=== PATIENT | male | born 1950 | race Caucasian/White ===

== ENCOUNTER 2018-02-25 06:21 | Emergency (ER) | payer MEDICARE ==
[2018-02-25 06:57] LABS: BASOPHILS % (AUTO) 0.3 %; EOSINOPHILS # (AUTO) 0.1 10^3/uL (0.0-0.7); EOSINOPHILS % (AUTO) 0.5 %; HGB - HEMOGLOBIN 15.7 g/dL (14.0-18.0); LYMPHOCYTES # (AUTO) 0.9 10^3/uL (1.5-3.5); LYMPHOCYTES % (AUTO) 8.5 %; MEAN CORPUSCULAR HEMOGLOBIN 30.2 pg (27.0-31.0); MEAN CORPUSCULAR HGB CONC 34.6 g/dL (32.0-36.0); MEAN CORPUSCULAR VOLUME 87.4 fL (80.0-94.0); MONOCYTES # (AUTO) 0.4 10^3/uL (0.0-1.0); MONOCYTES % (AUTO) 3.9 %; NEUTROPHILS # (AUTO) 9.5 10^3/uL (1.5-6.6); NEUTROPHILS % (AUTO) 86.8 %; PLT - PLATELET COUNT 222 10^3/uL (130-450); RED BLOOD COUNT 5.19 10^6/uL (4.70-6.10); RED CELL DISTRIBUTION WIDTH 13.5 % (12.0-15.0); WHITE BLOOD COUNT 10.9 x10^3/uL (4.8-10.8)
--- NOTE | 2018-02-25 07:02 | ED Physician Documentation ---
PD HPI ABD PAIN - Stated complaint Stated Complaint: SIDE PX - Chief complaint Chief Complaint: Abd Pain - History obtained from History obtained from: Patient - History of Present Illness Timing - onset: Today (this morning about 1 hour ago) Timing - details: Abrupt onset, Now resolved, Intermittant (has had this happen 3 other times in the past month or so, each time abrupt onset while resting or light activity, severe and lasts about 20 minutes then has resolved. He did not notice if the area felt hard or such.) Quality: Aching, Sharp, Pain Location: RLQ Radiation: No: Chest, Lower back, Right flank Associated symptoms: Nausea, Vomiting. No: Fever, Diarrhea, Constipation, Dysuria, Hematuria, Loss of appetite Similar symptoms before: No diagnosis Recently seen: Not recently seen Review of Systems Constitutional: denies: Fever, Chills, Myalgias Nose: denies: Rhinorrhea / runny nose, Congestion Throat: denies: Sore throat Cardiac: denies: Chest pain / pressure, Palpitations Respiratory: denies: Dyspnea, Cough GI: reports: Abdominal Pain (these intermittent discrete episodes.). denies: Constipation, Diarrhea, Bloody / black stool : denies: Dysuria, Frequency, Hematuria, Discharge Skin: denies: Rash, Lesions Neurologic: denies: Generalized weakness, Focal weakness, Numbness, Near syncope PD PAST MEDICAL HISTORY - Past Medical History Past Medical History: No Cardiovascular: None Respiratory: None Neuro: None Endocrine/Autoimmune: None GI: None : None HEENT: None Psych: None Musculoskeletal: None Derm: None - Past Surgical History Past Surgical History: No - Present Medications Home Medications: Ambulatory Orders Medication Instructions Recorded Confirmed HYDROcod/ACETAM 5/325 [Vicodin 1 - 2 ea PO Q6H PRN #15 tablet 10/31/12 5/325] No Known Home Medications [No 10/31/12 10/31/12 Known Home Medications] - Allergies Allergies/Adverse Reactions: Allergies Allergy/AdvReac Type Severity Reaction Status Date / Time No Known Drug Allergies Allergy Verified 02/25/18 06:26 - Social History Does the pt smoke?: Yes Smoking Status: Current every day smoker Does the pt drink ETOH?: No Does the pt have substance abuse?: No - Immunizations Immunizations are current?: Yes - POLST Patient has POLST: No PD ED PE NORMAL - Vitals Vital signs reviewed: Yes - General General: Alert and oriented X 3, Well developed/nourished, Other (not in pain but seems anxious) - HEENT HEENT: Pharynx benign - Neck Neck: Supple, no meningeal sign, No adenopathy - Cardiac Cardiac: RRR, No murmur - Respiratory Respiratory: Clear bilaterally - Abdomen Abdomen: Normal bowel sounds, Soft, Non tender, Non distended, No organomegaly, Other (right inguinal hernia noted, soft and reducible at this time. Some tender in that area. No percussion nor rebound tenderness. ) - Male Male : Other (no scrotal tenderness. ) - Rectal Rectal: Deferred - Derm Derm: Normal color, Warm and dry, No rash - Extremities Extremities: No tenderness to palpate, Normal ROM s pain, No edema, No calf tenderness / cord - Neuro Neuro: Alert and oriented X 3, No motor deficit, Normal speech Results - Vitals Vitals: Oxygen O2 Source Room air - Labs Labs: Laboratory Tests 02/25/18 02/25/18 06:45 06:45 WBC 10.9 H RBC 5.19 Hgb 15.7 Hct 45.4 MCV 87.4 MCH 30.2 MCHC 34.6 RDW 13.5 Plt Count 222 MPV 8.0 Neut # (Auto) 9.5 H Lymph # (Auto) 0.9 L [place] # (Auto) 0.4 Eos # (Auto) 0.1 Baso # (Auto) 0.0 Absolute Nucleated RBC 0.00 Nucleated RBC % 0.0 Sodium 137 Potassium 4.0 Chloride 104 Carbon Dioxide 24 Anion Gap 9.0 BUN 20 Creatinine 1.5 H Estimated GFR (MDRD) 47 L Glucose 120 H Calcium 9.4 Total Bilirubin 1.1 H AST 23 ALT 18 Alkaline Phosphatase 67 Total Protein 7.4 Albumin 4.0 Globulin 3.4 Albumin/Globulin Ratio 1.2 Lipase 41 - Rads (name of study) KUB CT Radiology: Prelim report reviewed, EMP read contemporaneously (no obstruction, no kidney/gallbladder stones. Has inguinal hernia with loop of bowel in it. No signs of incarceration. ) PD MEDICAL DECISION MAKING - ED course Complexity details: reviewed results, considered differential (abrupt onset and then improvement of right lower abd pain, with hernia present. Presume intermittent incarceration. Got CT to ensure not kidney stones or such instead ( with incidental hernia). No stones and no signs of strangulation. He will want hernia repaired though, if he has had intermittent incarceration. ), d/w patient - Sepsis Event Vital Signs: Oxygen O2 Source Room air Departure - Departure Disposition: 01 Home, Self Care Clinical Impression: Abdominal pain Qualifiers: Abdominal location: right lower quadrant Qualified Code(s): R10.31 - Right lower quadrant pain Hernia, inguinal Qualifiers: Obstruction and gangrene presence: without obstruction or gangrene Laterality: unilateral Recurrence: non-recurrent Qualified Code(s): K40.90 - Unilateral inguinal hernia, without obstruction or gangrene, not specified as recurrent Condition: Stable Record reviewed to determine appropriate education?: Yes Instructions: Abdominal Pain, ED Hernia Inguinal Follow-Up: Galindo Champagne MD [Provider Admit Priv/Credential] - Comments: Your abdominal pain episodes appear to be coming from your hernia. It likely gets twisted and trapped episodically. It appears reducible right now it is not trapped currently. Your CT scan does not show any kidney stones or gallbladder problems or other causes for pain. You will want to have the hernia repaired to prevent it from happening again. Call the surgery office for follow-up appointment to discuss surgical repair of this. It is an outpatient surgery and rather easy repair and quick recovery. That would keep it from having any these pain episodes again. Return if further episodes that do not go away with lying flat and gentle pressure on the hernia area. Discharge Date/Time: 02/25/18 08:12
[2018-02-25 07:09] LABS: ALBUMIN/GLOBULIN RATIO 1.2 (1.0-2.2); BILIRUBIN,TOTAL 1.1 mg/dL (0.2-1.0); CALCIUM 9.4 mg/dL (8.5-10.3); CREATININE 1.5 mg/dL (0.6-1.2); TOTAL PROTEIN 7.4 g/dL (6.7-8.2)
--- NOTE | 2018-02-25 07:48 | CT Report ---
Reason: RLQ abrupt pain this morning Procedure Date: 02/25/2018 Accession Number: [id number] / [id number] Procedure: CT - KUB CPT Code: FULL RESULT: EXAM: CT ABDOMEN AND PELVIS (CT KUB) EXAM DATE: 02/25/2018 07:28 AM. CLINICAL HISTORY: Right lower quadrant abdominal pain with abrupt onset this morning. COMPARISONS: None. TECHNIQUE: Routine axial helical CT imaging was performed through the abdomen and pelvis without IV contrast. Reconstructions: Coronal and sagittal. In accordance with CT protocol optimization, one or more of the following dose reduction techniques were utilized for this exam: automated exposure control, adjustment of mA and/or KV based on patient size, or use of iterative reconstructive technique. FINDINGS: Lung Bases: There is a 5 mm calcified granuloma at the left lung base and calcified left hilar nodes, consistent with prior granulomatous disease. No consolidation of the visualized lung bases. Right Kidney/Ureter: No stones, hydronephrosis, or hydroureter. No perinephric fat stranding. Left Kidney/Ureter: No stones, hydronephrosis, or hydroureter. No perinephric fat stranding. Other Solid Organs: Noncontrast images of the solid organs are grossly unremarkable. Gallbladder/Bile Ducts: Unremarkable. Peritoneal Cavity: A moderate hiatal hernia is present. No free fluid, free air or ian adenopathy. Bowel is grossly unremarkable. The appendix is normal. Pelvic Organs: No bladder stones or wall thickening. Noncontrast images of the visualized pelvic organs are unremarkable. Vasculature: Unremarkable. Other: There is a moderate right inguinal hernia containing a short loop of small bowel. No evidence of bowel obstruction. There is a moderate fat-containing left inguinal hernia. There is right convex curvature of the lumbar spine, likely secondary to extensive degenerative disk and degenerative facet changes. No acute osseous abnormality. IMPRESSION: 1. No urinary tract stones or obstruction. 2. There is a moderate sized right inguinal hernia containing a short loop of small bowel. No evidence of small bowel obstruction. 3. There is a moderate-sized fat-containing left inguinal hernia. 4. Moderate hiatal hernia. 5. Normal appendix. RADIA
[2018-02-25 08:14] VITALS: BP 147/92
== END 2018-02-25 08:12 | disposition home or self-care (01) ==
LOC: EDBD 06:21 → ED 06:21
DX: R10.31 Right lower quadrant pain (principal); K40.90 Unilateral inguinal hernia, without obstruction or gangrene, not specified as recurrent; F17.200 Nicotine dependence, unspecified, uncomplicated
CPT/HCPCS: 36415; 74176; 80053; 83690; 85025; 99283

== ENCOUNTER 2019-07-16 15:16 | Emergency (ER) | payer MEDICARE ==
[2019-07-16 15:32] VITALS: BP 135/81
--- NOTE | 2019-07-16 16:02 | ED Physician Documentation ---
PD HPI HEENT - Stated complaint Stated Complaint: FACIAL SWELLING - Chief complaint Chief Complaint: Heent - History obtained from History obtained from: Patient - History of Present Illness Timing - onset: How many days ago (5) Timing - duration: Days (5) Timing - details: Gradual onset, Still present (worsening the past 1-2 days) Location: Tooth (left upper incisor) Worsens: Temperatures, Other (chewing) Associated symptoms: Facial swelling (left cheek and maxilla). No: Fever, Congestion Similar symptoms before: Has not had sx before Recently seen: Not recently seen (tried to make dental appt but no openings.) Review of Systems Constitutional: denies: Fever, Chills, Myalgias Throat: reports: Dental pain / toothache. denies: Sore throat Cardiac: denies: Chest pain / pressure, Palpitations Respiratory: denies: Dyspnea, Cough PD PAST MEDICAL HISTORY - Past Medical History Cardiovascular: None Respiratory: None Neuro: None Endocrine/Autoimmune: None GI: None : None HEENT: None Psych: None Musculoskeletal: None Derm: None - Past Surgical History Past Surgical History: No - Present Medications Home Medications: Ambulatory Orders Medication Instructions Recorded Confirmed HYDROcod/ACETAM 5/325 [Vicodin 1 - 2 ea PO Q6H PRN #15 tablet 10/31/12 5/325] Clindamycin HCl [Clindamycin 300MG 300 mg PO TID #21 capsule 07/16/19 CAP] Hydrocodone/Acetaminophen [[place] 1 each PO Q6H PRN #20 tablet 07/16/19 5-325 Tablet] Naproxen 500 mg PO BID #20 tablet 07/16/19 - Allergies Allergies/Adverse Reactions: Allergies Allergy/AdvReac Type Severity Reaction Status Date / Time No Known Drug Allergies Allergy Verified 07/16/19 15:32 - Social History Does the pt smoke?: Yes Smoking Status: Current every day smoker Does the pt drink ETOH?: No Does the pt have substance abuse?: No - Immunizations Immunizations are current?: Yes - POLST Patient has POLST: No PD ED PE NORMAL - Vitals Vital signs reviewed: Yes - General General: Alert and oriented X 3, Well developed/nourished, Other (appears in pain. Normal voice. ) - HEENT HEENT: Pharynx benign. No: Dentition benign (significant caries diffusely. Left upper incisor with decay and with gum swelling but no focal fluctuance. There is facial swelling without induration in left maxillary and cheek area. No abscess felt. ) - Neck Neck: Supple, no meningeal sign, No adenopathy - Cardiac Cardiac: RRR, No murmur - Respiratory Respiratory: Clear bilaterally Results - Vitals Vitals: Oxygen O2 Source Room air PD MEDICAL DECISION MAKING - ED course Complexity details: considered differential, d/w patient Departure - Departure Disposition: 01 Home, Self Care Clinical Impression: Infected dental caries Condition: Stable Record reviewed to determine appropriate education?: Yes Instructions: ED Dental Abscess Facial Cellulitis Prescriptions: Clindamycin HCl [Clindamycin 300MG CAP] 300 mg PO TID #21 capsule Hydrocodone/Acetaminophen [[place] 5-325 Tablet] 1 each PO Q6H PRN #20 tablet PRN Reason: Pain Naproxen 500 mg PO BID #20 tablet Comments: Stay well-hydrated. Anti-inflammatory such as naproxen 500 mg twice daily for 7 to 10 days with food. Add Tylenol or hydrocodone as needed for pain. Clindamycin antibiotic 3 times a day for a week. Follow-up with dental/dentist if not improved over the next several days and then at their soonest appointment for more definitive care of the teeth. The current emphasis on treatment is to reduce the infection and inflammation and pain. However the decayed teeth subsequently need more definitive dental care. Discharge Date/Time: 07/16/19 16:32
[2019-07-16] MEDS ORDERED: IBUPROFEN 600 MG TABLET PO STA (16:11)
[2019-07-16] MEDS ORDERED: CLINDAMYCIN 150 MG CAPSULE PO STA (16:11)
[2019-07-16] MEDS ORDERED: HYDROcod/ACETAM 5/325 MG TABLET PO STA (16:11)
== END 2019-07-16 16:32 | disposition home or self-care (01) ==
LOC: ED 15:16
DX: K04.7 Periapical abscess without sinus (principal); K02.9 Dental caries, unspecified; F17.200 Nicotine dependence, unspecified, uncomplicated
CPT/HCPCS: 99283; 99284; A9270

== ENCOUNTER 2020-11-26 08:23 | Inpatient (IN) | payer MEDICARE, MEDICAID ==
--- OUTSIDE RECORDS SUMMARY | 2020-11-26 08:46 | EXTERNAL MEDICAL SUMMARY RPT | Continuity of Care Document ---
:1950 Demographics Phone Unavailable Preferred Language Unknown Marital Status Unknown Restoration Affiliation Unknown Race Unknown Ethnic Group Unknown Author Organization [facility] Address [address] [place] [address] Phone Allergies Encounters Medications Problems Results
[2020-11-26 09:02] LABS: BASOPHILS % (AUTO) 0.3 %; EOSINOPHILS % (AUTO) 0.2 %; HCT - HEMATOCRIT 41.2 % (42.0-52.0); HGB - HEMOGLOBIN 13.9 g/dL (14.0-18.0); LYMPHOCYTES # (AUTO) 0.9 10^3/uL (1.5-3.5); MEAN CORPUSCULAR HEMOGLOBIN 29.1 pg (27.0-31.0); MEAN CORPUSCULAR HGB CONC 33.7 g/dL (32.0-36.0); MEAN CORPUSCULAR VOLUME 86.2 fL (80.0-94.0); MEAN PLATELET VOLUME 9.9 fL (7.4-11.4); MONOCYTES # (AUTO) 0.3 10^3/uL (0.0-1.0); MONOCYTES % (AUTO) 3.1 %; NEUTROPHILS # (AUTO) 9.4 10^3/uL (1.5-6.6); PLT - PLATELET COUNT 205 10^3/uL (130-450); RED BLOOD COUNT 4.78 10^6/uL (4.70-6.10); RED CELL DISTRIBUTION WIDTH 12.6 % (12.0-15.0); WHITE BLOOD COUNT 10.7 x10^3/uL (4.8-10.8)
[2020-11-26] MEDS ORDERED: HYDROmorphone 1 MG/ML CARPUJECT IVP STA (09:10)
[2020-11-26] MEDS ORDERED: SODIUM CHLORIDE 0.9% 1,000 ML IV STA (09:10)
[2020-11-26] MEDS ORDERED: ONDANSETRON 4 MG/2 ML VIAL IVP STA (09:10)
[2020-11-26] MEDS ORDERED: IOVERSOL 320 100 ML VIAL IVP ONE ×2 (09:14→12:40)
--- NOTE | 2020-11-26 09:15 | ED Physician Documentation ---
PD HPI ABD PAIN - Stated complaint Stated Complaint: STOMACH PX - Chief complaint Chief Complaint: Abd Pain - History obtained from History obtained from: Patient, Family - History of Present Illness Timing - onset: Enter time (0000), Last night Timing - duration: Hours Timing - details: Abrupt onset, Still present Quality: Sharp, Pain Location: Epigastric Improved by: Laying still Worsened by: Position, Palpation Associated symptoms: Nausea. No: Fever, Vomiting, Diarrhea, Constipation Similar symptoms before: No diagnosis Recently seen: Not recently seen - Additional information Additional information: 70-year-old male relates that he had onset of pain about midnight that is sharp and severe and he indicates the pain location is in epigastric region. After examination and the discovery of an incarcerated hernia in the right inguinal area the patient admits that the pain does come from this area and that he is nauseated but has not vomited and he feels that maybe his swelling has aggravated this condition. He states that he has had pain episodes about 6 times in the past year usually brief sometimes lasting for 5 hours. He states that he did not know with this large mass was but does know that it is aggravated by his swimming. Review of Systems Constitutional: denies: Fever Eyes: denies: Decreased vision Ears: denies: Ear pain Nose: denies: Congestion Throat: denies: Sore throat PD PAST MEDICAL HISTORY - Past Medical History Past Medical History: No Cardiovascular: None Respiratory: None Neuro: None Endocrine/Autoimmune: None GI: None : None HEENT: None Psych: None Musculoskeletal: None Derm: None - Past Surgical History Past Surgical History: No - Present Medications Home Medications: Ambulatory Orders Medication Instructions Recorded Confirmed No Known Home Medications 11/26/20 11/26/20 - Allergies Allergies/Adverse Reactions: Allergies Allergy/AdvReac Type Severity Reaction Status Date / Time No Known Drug Allergies Allergy Verified 11/26/20 08:41 - Social History Does the pt smoke?: Yes Smoking Status: Current every day smoker Does the pt drink ETOH?: No Does the pt have substance abuse?: No - Immunizations Immunizations are current?: Yes - POLST Patient has POLST: No PD ED PE NORMAL - Vitals Vital signs reviewed: Yes (hypertensive ) - General General: Alert and oriented X 3, No acute distress, Well developed/nourished - HEENT HEENT: Atraumatic, PERRL, EOMI - Neck Neck: Supple, no meningeal sign, No bony TTP - Cardiac Cardiac: RRR, No murmur - Respiratory Respiratory: No respiratory distress, Clear bilaterally - Abdomen Abdomen: Normal bowel sounds, Soft, Non distended, No organomegaly, Other (tenderness starts in the lower abdomen and is associated with a firm tender mass in the right inguinal area. 5-6 cm in size. ) - Back Back: No CVA TTP, No spinal TTP - Derm Derm: Normal color, Warm and dry, No rash - Extremities Extremities: No deformity, No edema - Neuro Neuro: Alert and oriented X 3, pattern chain builder 2-12 intact, No motor deficit, No sensory deficit, Normal speech Eye Opening: Spontaneous Motor: Obeys Commands Verbal: Oriented GCS Score: 15 - Psych Psych: Normal mood, Normal affect Results - Vitals Vitals: Vital Signs - 24 hr 11/26/20 11/26/20 11/26/20 08:28 09:37 11:12 Temperature 36.4 C L Heart Rate 72 73 111 H Respiratory 20 20 20 Rate Blood Pressure 174/96 H 151/81 H 163/95 H O2 Saturation 98 94 96 11/26/20 11/26/20 12:08 13:00 Temperature 36.4 C L 37.0 C Heart Rate 111 H 113 H Respiratory 20 18 Rate Blood Pressure 163/95 H 148/101 H O2 Saturation 96 94 Oxygen O2 Source Room air - Labs Labs: Laboratory Tests 11/26/20 11/26/20 11/26/20 08:50 08:50 09:22 WBC 10.7 RBC 4.78 Hgb 13.9 L Hct 41.2 L MCV 86.2 MCH 29.1 MCHC 33.7 RDW 12.6 Plt Count 205 MPV 9.9 Neut # (Auto) 9.4 H Lymph # (Auto) 0.9 L [place] # (Auto) 0.3 Eos # (Auto) 0.0 Baso # (Auto) 0.0 Absolute Nucleated RBC 0.00 Nucleated RBC % 0.0 Sodium 136 Potassium 3.6 Chloride 107 Carbon Dioxide 21 Anion Gap 8.0 BUN 17 Creatinine 1.1 Estimated GFR (MDRD) 66 L Glucose 136 H Lactic Acid 2.1 Calcium 9.1 Total Bilirubin 0.5 AST 19 ALT 15 Alkaline Phosphatase 67 Total Protein 7.4 Albumin 4.1 Globulin 3.3 Albumin/Globulin Ratio 1.2 Lipase 27 Urine Color Urine Clarity Urine pH Ur Specific Depue Urine Protein Urine Glucose (UA) Urine Ketones Urine Occult Blood Urine Nitrite Urine Bilirubin Urine Urobilinogen Ur Leukocyte Esterase Ur Microscopic Review Urine Culture Comments Nasal Adenovirus (PCR) Nasal B. parapertussis DNA (PCR) Nasal Coronavir 229E PCR Nasal Coronavir HKU1 PCR Nasal Coronavir NL63 PCR Nasal Coronavir OC43 PCR Nasal Enterovir/Rhinovir PCR Nasal Influenza B PCR Nasal Influenza A PCR Nasal Parainfluen 1 PCR Nasal Parainfluen 2 PCR Nasal Parainfluen 3 PCR Nasal Parainfluen 4 PCR Nasal RSV (PCR) Nasal B.pertussis DNA PCR Nasal C.pneumoniae (PCR) Juan Human Metapneumo PCR Nasal M.pneumoniae (PCR) Nasal SARS-CoV-2 (PCR) 11/26/20 11/26/20 11:24 11:34 WBC RBC Hgb Hct MCV MCH MCHC RDW Plt Count MPV Neut # (Auto) Lymph # (Auto) [place] # (Auto) Eos # (Auto) Baso # (Auto) Absolute Nucleated RBC Nucleated RBC % Sodium Potassium Chloride Carbon Dioxide Anion Gap BUN Creatinine Estimated GFR (MDRD) Glucose Lactic Acid Calcium Total Bilirubin AST ALT Alkaline Phosphatase Total Protein Albumin Globulin Albumin/Globulin Ratio Lipase Urine Color YELLOW Urine Clarity CLEAR Urine pH 5.0 Ur Specific Depue 1.025 Urine Protein NEGATIVE Urine Glucose (UA) NEGATIVE Urine Ketones NEGATIVE Urine Occult Blood NEGATIVE Urine Nitrite NEGATIVE Urine Bilirubin NEGATIVE Urine Urobilinogen 0.2 (NORMAL) Ur Leukocyte Esterase NEGATIVE Ur Microscopic Review NOT INDICATED Urine Culture Comments NOT INDICATED Nasal Adenovirus (PCR) NOT DETECTED Nasal B. parapertussis DNA (PCR) NOT DETECTED Nasal Coronavir 229E PCR NOT DETECTED Nasal Coronavir HKU1 PCR NOT DETECTED Nasal Coronavir NL63 PCR NOT DETECTED Nasal Coronavir OC43 PCR NOT DETECTED Nasal Enterovir/Rhinovir PCR NOT DETECTED Nasal Influenza B PCR NOT DETECTED Nasal Influenza A PCR NOT DETECTED Nasal Parainfluen 1 PCR NOT DETECTED Nasal Parainfluen 2 PCR NOT DETECTED Nasal Parainfluen 3 PCR NOT DETECTED Nasal Parainfluen 4 PCR NOT DETECTED Nasal RSV (PCR) NOT DETECTED Nasal B.pertussis DNA PCR NOT DETECTED Nasal C.pneumoniae (PCR) NOT DETECTED Juan Human Metapneumo PCR NOT DETECTED Nasal M.pneumoniae (PCR) NOT DETECTED Nasal SARS-CoV-2 (PCR) NOT DETECTED - Rads (name of study) CT ab/pel w Radiology: Prelim report reviewed (Impression: 1. Moderate sized right inguinal hernia containing a segment of distal small bowel loop with wall thickening and mesenteric fat stranding suggestive of incarcerated hernia. No other area of abnormal bowel wall thickening. No evidence of bowel obstruction. No free fluid or free air. ), Final report received (No evidence of bowel obstruction. No free fluid or free air. Left inguinal hernia containing fat only. Slightly atrophic left kidney is above suggestive of old injury/infarction. No hydronephrosis.), EMP read indepedently, See rad report PD MEDICAL DECISION MAKING - ED course Complexity details: reviewed results, re-evaluated patient, considered differential, d/w patient, d/w family ED course: 70-year-old male with a painful mass in his lower abdomen has what appears to be an inguinal hernia and this is just above the inguinal ligament consistent with direct herniation. I did attempt to reduce this some of the hernia felt like it was going back in this cause more more pain to the patient and eventually the procedure was abandoned. The patient is administered pain medication Dr. Germain is consulted in the case came to the emergency department was able to reduce the hernia. He will need to take the patient to surgery. Departure - Departure Disposition: [facility] DC/Xfer Clinical Impression: Hernia, inguinal Qualifiers: Obstruction and gangrene presence: with obstruction but without gangrene Laterality: unilateral Recurrence: not specified as recurrent Qualified Code(s): K40.30 - Unilateral inguinal hernia, with obstruction, without gangrene, not specified as recurrent Condition: Stable
[2020-11-26 09:17] LABS: ALBUMIN 4.1 g/dL (3.2-5.5); ALBUMIN/GLOBULIN RATIO 1.2 (1.0-2.2); BILIRUBIN,TOTAL 0.5 mg/dL (0.2-1.0); CALCIUM 9.1 mg/dL (8.5-10.3); CREATININE 1.1 mg/dL (0.6-1.2); POTASSIUM 3.6 mmol/L (3.5-5.0); TOTAL PROTEIN 7.4 g/dL (6.7-8.2)
--- NOTE | 2020-11-26 10:11 | ANESTHESIA ---
Pre-Anesthesia VS, & Labs - Diagnosis incarcerated right inguinal hernia - Procedure open right inguinal hernia repair with reduction of incarcerated hernia Vital Signs: Temp Pulse Resp BP Pulse Ox 36.4 C L 73 20 151/81 H 94 11/26/20 08:28 11/26/20 09:37 11/26/20 09:37 11/26/20 09:37 11/26/20 09:37 Height: 5 ft 11 in Weight (kg): 77.111 kg Body Mass Index: 23.7 BMI Classification: Healthy weight - NPO >8 hours - Lab Results Current Lab Results: Laboratory Tests 11/26/20 09:22: Lactic Acid 2.1 11/26/20 08:50: Sodium 136, Potassium 3.6, Chloride 107, Carbon Dioxide 21, Anion Gap 8.0, BUN 17, Creatinine 1.1, Estimated GFR (MDRD) 66 L, Glucose 136 H, Calcium 9.1, Total Bilirubin 0.5, AST 19, ALT 15, Alkaline Phosphatase 67, Total Protein 7.4, Albumin 4.1, Globulin 3.3, Albumin/Globulin Ratio 1.2, Lipase 27 11/26/20 08:50: WBC 10.7, RBC 4.78, Hgb 13.9 L, Hct 41.2 L, MCV 86.2, MCH 29.1, MCHC 33.7, RDW 12.6, Plt Count 205, MPV 9.9, Neut # (Auto) 9.4 H, Lymph # (Auto) 0.9 L, Patrick # (Auto) 0.3, Eos # (Auto) 0.0, Baso # (Auto) 0.0, Absolute Nucleated RBC 0.00, Nucleated RBC % 0.0 Fish Bones: 11/26/20 08:50 11/26/20 08:50 Home Medications and Allergies None Allergies/Adverse Reactions: Allergies Allergy/AdvReac Type Severity Reaction Status Date / Time No Known Drug Allergies Allergy Verified 11/26/20 08:41 Anes History & Medical History - Anesthetic History Family history of Anesthesia Complications: Denies Family history of Malignant Hyperthermia: Denies - Medical History Cardiovascular: reports: None Pulmonary: reports: None Gastrointestinal: reports: None Urinary: reports: None Neuro: reports: None Musculoskeletal: reports: None Endocrine/Autoimmune: reports: None Blood Disorders: reports: None Skin: reports: None Smoking Status: Former smoker (Quit 30 years ago) Psychosocial: reports: No issues indicated History of Cancer?: No Exam General: Alert, Oriented x3, Cooperative, No acute distress Dental: Other (edentulous) Mouth Openin Fingerbreadth Neck Mobility: Normal Mallampati classification: III Thyromental Distance: 4-6 cm Mental/Cognitive Status: Alert/Oriented X3, Normal for patient Plan Anesthesia Type: General Consent for Procedure(s) Verified and Reviewed: Yes Code Status: Attempt Resuscitation ASA classification: 2-Mild systemic disease Is this case an emergency?: Yes
--- NOTE | 2020-11-26 11:15 | CT Report ---
PROCEDURE: Abdomen/Pelvis W INDICATIONS: RLQ pain CONTRAST: IV CONTRAST: Optiray 320 ml: 100 PO CONTRAST: *NO PO CONTRAST TECHNIQUE: After the administration of IV contrast, 5 mm thick sections acquired from the diaphragms to the symp hysis. 5 mm thick coronal and sagittal reformats were acquired. For radiation dose reduction, the f ollowing was used: automated exposure control, adjustment of mA and/or kV according to patient size. COMPARISON: 02/18/1718. FINDINGS: Image quality: Excellent. ABDOMEN: Lung bases: Bibasilar dependent atelectasis are seen posteriorly. Heart size is normal. Large hiatal hernia is seen. Solid organs: Liver and spleen are normal in size and enhancement. Gallbladder is within normal [place] its. Biliary system is non dilated. Pancreas enhances normally. No adrenal nodules. Right kidney i s normal in size. Left kidney is slightly atrophic with thinning of posterior and lateral cortex sugg estive of prior injury/infarct. No hydronephrosis or nephrolithiasis. Peritoneum and bowel: There is no bowel obstruction. Right inguinal hernia is seen containing a segme nt of small bowel which is distended and show wall thickening concerning for incarcerated hernia. No other area of abnormal bowel wall thickening. No free fluid or free air. No abscess collection. Mild sigmoid diverticulosis is seen, no CT evidence of acute diverticulitis. Nodes and vessels: No retroperitoneal or mesenteric adenopathy by size criteria. Aorta and inferior vena cava are normal in size. Miscellaneous: No ventral hernias. PELVIS: Genitourinary: Bladder wall thickness is normal. Miscellaneous: Right inguinal hernia is seen as above. Fat-containing left inguinal hernia is also no honorio. No inguinal lymphadenopathy. Bones: No suspicious bony lesions. No vertebral body compression fractures. Degenerative disc dise ase throughout lower thoracic and lumbar spine is seen. IMPRESSION: 1. Moderate size right inguinal hernia containing a segment of distal small bowel loop with wall thic kening and mesenteric fat stranding suggestive of incarcerated hernia. 2. No other area of abnormal bowel wall thickening. No evidence of bowel obstruction. No free fluid o r free air. 3. Left inguinal hernia containing fat only. 4. Slightly atrophic left kidney as above suggestive of old injury/infarction. No hydronephrosis. Reviewed by: Fidel Snider MD on 11/26/2020 11:14 AM PDT Approved by: Fidel Snider MD on 11/26/2020 11:14 AM PDT Station ID: [id number]
[2020-11-26 11:34] LABS: BILIRUBIN,URINE NEGATIVE (NEGATIVE); GLUCOSE, URINE (UA) NEGATIVE (NEGATIVE); KETONES,URINE (UA) NEGATIVE (NEGATIVE); LEUKOCYTE ESTERASE, URINE NEGATIVE (NEGATIVE); NITRITE,URINE NEGATIVE (NEGATIVE); OCCULT BLOOD,URINE NEGATIVE (NEGATIVE); PROTEIN,URINE NEGATIVE (NEGATIVE); UROBILINOGEN,URINE 0.2 (NORMAL) E.U./dL (NORMAL)
[2020-11-26 11:50] LABS: CLARITY,URINE CLEAR (CLEAR)
--- NOTE | 2020-11-26 12:08 | SURGERY HX AND PHYSICAL(T) ---
Surgical History & Physical - Chief Complaint/HPI Chief Complaint: Incarcerated right inguinal hernia History of Present Illness: 70-year-old male presenting for incarcerated right inguinal hernia. Acute onset right inguinal hernia incarceration; patient reports longstanding however has worsened and acutely incarcerated while swimming. ER staff unable to reduce. No significant family history. Notable past surgical history to include none. Patient denies change in bowel function, denies bleeding per rectum, and also denies reflux associated symptoms. Patient has a history of alcohol use but denies any associated abuse. No history of heart attack or stroke. Patient takes no systemic anticoagulation. Endoscopic history includes never. - PMH/PSH/Social Hx Does the pt have a hx of MRSA?: No Neurological History: None Eyes, Ears, Nose, Throat: None Cardiovascular: None Respiratory: None Skin: None Endocrine/Autoimmune: None Gastrointestinal: None Urinary: None Musculoskeletal: None Blood Disorders: None Psychiatric: None Smoking Status: Current every day smoker Does the pt drink ETOH?: No Does the pt have substance abuse?: No - Home Meds and Allergies Home Medications: No Known Home Medications 11/26/20 Allergies/Adverse Reactions: Allergies Allergy/AdvReac Type Severity Reaction Status Date / Time No Known Drug Allergies Allergy Verified 11/26/20 08:41 - Review of Systems Gastrointestinal: Nausea, Vomiting, Abdominal pain - Vital Signs Heart Rate: 111 Blood Pressure: 163/95 Temperature: 36.4 C Respiratory Rate: 20 O2 Saturation: 96 Weight (kg): 77.111 kg Height: 1.8 m - Physical Exam Comments/Other: General Appearance: positive: No acute distress Eyes Bilateral: positive: Normal inspection ENT: positive: ENT inspection nml Neck: positive: Nml inspection Respiratory: positive: Chest non-tender, No respiratory distress, Breath sounds nml. negative: Wheezes, Rales, Rhonchi Cardiovascular: positive: Regular rate & rhythm Extremities: positive: Non-tender, Full ROM, Nml appearance Neurologic/Psychiatric: positive: Oriented x3, CN's nml (2-12) Abdomen specify: 1. Large right inguinal hernia. 2. Diffuse abdominal distention 3. Successfully reduced right inguinal hernia with taxis 4. No abdominal peritonitis or other concerning features; no rebound no guarding - Patient Review Patient Review: Problems were reviewed with the patient during this visit. Medications were reviewed with the patient during this visit. Allergies were reviewed this patient during this visit. Pertinent Tests Reviewed: All pertitent test for this patient were reviewed. - Assessment & Plan Assessment and Plan: 70-year-old male with groin pain and incarcerated right inguinal herniation on physical exam and imaging; successfully reduced by myself with taxis. We have evaluated with CT imaging prior to reduction with no concerns for bowel wall thickening or acute ischemic event. Lactate normal. Admit patient n.p.o., IV fluids, preoperative work-up, serial abdominal exams given reduction. Patient will be best served with urgent repair to prevent recurrence. We will consider laparoscopic intervention. Diagnostic laparoscopy, laparoscopic right transabdominal preperitoneal AKA MANJINDER. As it relates to possible operative intervention, risk and benefits discussed. Patient was advised of the significant risks of heart attack stroke and from anesthesia as well as pulmonary embolism. These were amongst others. Moreover the patient was also advised of the risk of recurrent hernia and infectious complications as it relates to implanted mesh. Please note that voice recognition software was used to transcribe this note and inadvertent errors might persist in spite of review and editing. I am obliged to you for your attention. I am thankful to you for allowing me to participate with you in this care of this patient.
[2020-11-26 12:40] LABS: CORONAVIRUS 229E-RESP PCR NOT DETECTED; CORONAVIRUS HKU1-RESP PCR NOT DETECTED; CORONAVIRUS NL63-RESP PCR NOT DETECTED; CORONAVIRUS OC43-RESP PCR NOT DETECTED; HUMAN METAPNEUMOVIRUS NOT DETECTED; RHINOVIRUS/ENTEROVIRUS NOT DETECTED; SARS-CoV-2 -RESP PCR PANEL NOT DETECTED
[2020-11-26 12:41] LABS: B. PARAPERTUSSIS- RESP PCR PAN NOT DETECTED; B. PERTUSSIS- RESP PCR PANEL NOT DETECTED; C. PNEUMONIAE- RESP PCR PANEL NOT DETECTED; INFLUENZA A- RESP PCR PANEL NOT DETECTED; INFLUENZA B - RESP PCR PANEL NOT DETECTED; M. PNEUMONIAE- RESP PCR PANEL NOT DETECTED; PARAINFLUENZA VIRUS 1 NOT DETECTED; PARAINFLUENZA VIRUS 2 NOT DETECTED; PARAINFLUENZA VIRUS 3 NOT DETECTED; PARAINFLUENZA VIRUS 4 NOT DETECTED; RSV- RESP PCR PANEL NOT DETECTED
[2020-11-26] MEDS ORDERED: SODIUM CHLORIDE FLUSH 0.9% 10 ML SYRINGE IVP PRN (17:31)
[2020-11-26] MEDS ORDERED: ACETAMINOPHEN 1,000 MG/100 ML 100 ML IV PRN (17:31)
[2020-11-26] MEDS ORDERED: HYDROmorphone 0.5 MG/0.5 ML SYRINGE IVP PRN (17:31)
[2020-11-26] MEDS ORDERED: ONDANSETRON 4 MG/2 ML VIAL IVP PRN (17:31)
--- OUTSIDE RECORDS SUMMARY | 2020-11-26 18:06 | EXTERNAL MEDICAL SUMMARY RPT | Continuity of Care Document ---
:1950 Demographics Phone Unavailable Preferred Language Unknown Marital Status Unknown Jew Affiliation Unknown Race Unknown Ethnic Group Unknown Author Organization [facility] Address [address] [place] [address] Phone Allergies Encounters Medications Problems Results
--- NOTE | 2020-11-26 18:44 | XRAY Report ---
PROCEDURE: Chest 1 View X-Ray INDICATIONS: pre op TECHNIQUE: One view of the chest was acquired. COMPARISON: Lung bases on CT abdomen and pelvis earlier today. CXR 10/31/2012. FINDINGS: Surgical changes and devices: None. Lungs and pleura: No pleural effusions or pneumothorax. Minimal streaky opacity at the left lung bas e. Low lung volumes. Mediastinum: Mediastinal contours appear unchanged. Moderate hiatal hernia seen on CT. Heart size i s normal. Bones and chest wall: No suspicious bony lesions. Overlying soft tissues appear unremarkable. IMPRESSION: Low lung volumes. Minimal streaky opacity at the left lung base. Suspect atelectasis. Hiatal hernia. Reviewed by: Bacilio Jones MD on 11/26/2020 6:43 PM PDT Approved by: Bacilio Jones MD on 11/26/2020 6:43 PM PDT Station ID: [id number]
[2020-11-26] MEDS: methocarbamoL 500 MG TABLET PO SCH ×2 (19:08→23:55)
[2020-11-26] MEDS: D5NS W/20 MEQ KCL 1,000 ML IV SCH (19:08)
[2020-11-26] MEDS: METOCLOPRAMIDE 10 MG/2 ML VIAL IVP SCH ×2 (19:08→23:55)
--- NOTE | 2020-11-26 19:48 | CONSULTATION NOTE ---
Referring Provider Name of Referring Provider:: Dr. Isaiah Germain Consult Date: 11/26/20 Chief Complaint - Chief Complaint Chief Complaint: Abdominal pain History of Present Illness - Admitted From Admitted From:: Home - History Obtained From Records Reviewed: Yes History obtained from: Patient, Surgeon, EMR - History of Present Illness HPI Comment/Other: This is a 70-year-old male with no significant past medical history who presents today complaining of right lower quadrant abdominal pain that began this morning. He states this is happened about 5-6 times this past year which time has resolved on its own. The pain was about 12 out of 10 and was so excruciating that he sought medical attention immediately. He had no associated nausea or vomiting. Denies fevers, chills, chest pain, dyspnea. He currently states that his pain is resolved and he feels back to his usual self. He denies any medical history but he has not seen a physician in over 10/15 years. He takes no medication. He denies a prior history of diabetes or hypertension. In the emergency department, he was found to have an incarcerated right inguinal hernia which was reduced by general surgery. He has since been admitted under the service and medicine was consulted to assist with his hypertension. We did discuss goals of care and he would like to be a full code. History - Past Medical History Cardiovascular: reports: None Respiratory: reports: None Neuro: reports: None Endocrine/Autoimmune: reports: None GI: reports: None : reports: None HEENT: reports: None Psych: reports: None Musculoskeletal: reports: None Derm: reports: None MRSA Hx?: No - Family & Social History Family History Comment/Other: He reports no family history to his knowledge. 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 He smoked briefly over 30 years ago. Denies any alcohol use. - POLST Patient has POLST: No Meds/Allgy - Home Medications Home Medications: Ambulatory Orders Medication Instructions Recorded Confirmed No Known Home Medications 11/26/20 11/26/20 - Allergies Allergies/Adverse Reactions: Allergies Allergy/AdvReac Type Severity Reaction Status Date / Time No Known Drug Allergies Allergy Verified 11/26/20 08:41 Review of Systems - Constitutional Constitutional: denies: Fever, Chills, Malaise - Cardiovascular Cariovascular: denies: Chest pain, Edema, Exertional dyspnea, Decr. exercise tolerance - Respiratory Respiratory: denies: Cough, SOB at rest, SOB with exertion - Gastrointestinal Gastrointestinal: denies: Abdominal pain, Constipation, Diarrhea, Nausea, Vomiting - Genitourinary Genitourinary: denies: Dysuria, Frequency, Hematuria - Neurological Neurological: denies: General weakness, Focal weakness - All Other Systems All Other Systems: reports: Reviewed and negative Exam - Vital Signs Reviewed Vital Signs: Yes Vital Signs: Vital Signs x48h Temp Pulse Pulse Resp BP BP Pulse Ox 11/26/20 19:35 37.4 C 107 H 20 174/96 H 95 11/26/20 18:36 36.4 C L 111 H 20 163/95 H 96 11/26/20 17:00 37.0 C 97 18 163/102 H 95 11/26/20 15:20 37.4 C 105 H 16 136/90 H 94 11/26/20 13:00 37.0 C 113 H 18 148/101 H 94 - Physical Exam General Appearance: positive: No acute distress, Alert Eyes Bilateral: positive: Normal inspection, Conjunctivae nml ENT: positive: ENT inspection nml Neck: positive: Nml inspection Respiratory: positive: No respiratory distress. negative: Wheezes, Rales Cardiovascular: positive: Tachycardia. negative: Irregularly irregular, Bradyca rdia, Systolic murmur Abdomen: positive: Non-tender, No distention, Other (Right inguinal hernia noted.). negative: Tenderness, Guarding, Rebound Skin: positive: Warm, Dry Extremities: positive: No pedal edema Neurologic/Psychiatric: positive: Motor nml. negative: Disoriented to person, Disoriented to place Conclusion/Plan - Diagnosis Diagnosis: 1) Hypertenion. 2 Incarcerate inguinal hernia - Plan Plan: He is hypertensive with systolic in the 170s. It is unclear if he has a prior history of hypertension or not given he has not seen a physician in over 15 years. Is current elevation of his blood pressure may be due to pain as well as stress/anxiety of being here in the hospital. Nonetheless we will start him on amlodipine 5 mg today. I did discuss with him that he will need a primary care provider on discharge to follow-up with as he will need his blood pressure monitored and may need a second antihypertensive. He is agreeable to this. With regards to his incarcerated hernia, this has been reduced by general surgery. Will defer to them regarding management of this whether they want to proceed with intervention during this hospitalization or have him follow-up on outpatient basis. - Lab Results Lab results reviewed: Yes Finn Bones: 11/26/20 08:50 11/26/20 08:50 - Diagnostic Imaging Results Diagnostic Imaging Results: positive: Final report reviewed
[2020-11-26] MEDS: amLODIPine 5 MG TABLET PO SCH (21:06)
[2020-11-26] MEDS: SODIUM CHLORIDE FLUSH 0.9% 10 ML SYRINGE IVP SCH (23:55)
[2020-11-27] MEDS: D5NS W/20 MEQ KCL 1,000 ML IV SCH ×3 (03:18→16:54)
[2020-11-27 05:07] LABS: BASOPHILS % (AUTO) 0.5 %; EOSINOPHILS # (AUTO) 0.1 10^3/uL (0.0-0.7); EOSINOPHILS % (AUTO) 2.3 %; HCT - HEMATOCRIT 36.9 % (42.0-52.0); HGB - HEMOGLOBIN 12.3 g/dL (14.0-18.0); LYMPHOCYTES # (AUTO) 1.9 10^3/uL (1.5-3.5); LYMPHOCYTES % (AUTO) 33.8 %; MEAN CORPUSCULAR HEMOGLOBIN 29.3 pg (27.0-31.0); MEAN CORPUSCULAR HGB CONC 33.3 g/dL (32.0-36.0); MEAN CORPUSCULAR VOLUME 87.9 fL (80.0-94.0); MONOCYTES # (AUTO) 0.4 10^3/uL (0.0-1.0); MONOCYTES % (AUTO) 7.2 %; NEUTROPHILS # (AUTO) 3.1 10^3/uL (1.5-6.6); NEUTROPHILS % (AUTO) 55.8 %; PLT - PLATELET COUNT 189 10^3/uL (130-450); RED CELL DISTRIBUTION WIDTH 12.7 % (12.0-15.0); WHITE BLOOD COUNT 5.6 x10^3/uL (4.8-10.8)
[2020-11-27 05:20] LABS: ALBUMIN 3.4 g/dL (3.2-5.5); ALBUMIN/GLOBULIN RATIO 1.2 (1.0-2.2); BILIRUBIN,TOTAL 0.7 mg/dL (0.2-1.0); CALCIUM 8.7 mg/dL (8.5-10.3); CREATININE 1.2 mg/dL (0.6-1.2); MAGNESIUM 1.7 mg/dL (1.7-2.8); PHOSPHORUS 3.1 mg/dL (2.5-4.6); POTASSIUM 3.7 mmol/L (3.5-5.0); TOTAL PROTEIN 6.3 g/dL (6.7-8.2)
[2020-11-27] MEDS: methocarbamoL 500 MG TABLET PO SCH ×4 (06:25→23:47)
[2020-11-27] MEDS: METOCLOPRAMIDE 10 MG/2 ML VIAL IVP SCH ×4 (06:26→23:47)
[2020-11-27] MEDS: PANTOPRAZOLE 40 MG VIAL IVP SCH (06:26)
[2020-11-27] MEDS: amLODIPine 5 MG TABLET PO SCH (08:53)
[2020-11-27] MEDS: SODIUM CHLORIDE FLUSH 0.9% 10 ML SYRINGE IVP SCH ×3 (08:54→23:47)
[2020-11-27] MEDS ORDERED: ENOXAPARIN 40 MG/0.4 ML SYRINGE SUBQ SCH (09:00)
[2020-11-27] MEDS ORDERED: PROPOFOL 200 MG/20 ML VIAL IVP ONE (12:37)
[2020-11-27] MEDS ORDERED: ROCURONIUM 50 MG/5 ML VIAL ONE ×2 (12:37→13:43)
[2020-11-27] MEDS ORDERED: MIDAZOLAM 2 MG/2 ML VIAL ONE (12:37)
[2020-11-27] MEDS ORDERED: LIDOCAINE-MPF 2% 5 ML VIAL ONE (12:37)
[2020-11-27] MEDS ORDERED: fentaNYL 100 MCG/2 ML VIAL ONE (12:38)
[2020-11-27] MEDS ORDERED: SUCCINYLCHOLINE 200 MG/10 ML VIAL ONE (12:38)
[2020-11-27] MEDS ORDERED: LIDOCAINE MPF 2%-EPI 1:200000 20 ML VIAL ONE (12:44)
[2020-11-27] MEDS ORDERED: BUPIVACAINE 0.5% PF 30 ML VIAL ONE (12:44)
--- NOTE | 2020-11-27 12:46 | PROVIDER PROGRESS NOTE ---
Progress Note Subjective No recurrent hernia. Remains reduced. No nausea vomiting. Patient n.p.o. Seen by hospital service yesterday to whom we are indefinite for their input. Objective Afebrile hemodynamically acceptable General Appearance: positive: No acute distress Eyes Bilateral: positive: Normal inspection ENT: positive: ENT inspection nml Neck: positive: Nml inspection Respiratory: positive: Chest non-tender, No respiratory distress, Breath sounds nml. negative: Wheezes, Rales, Rhonchi Cardiovascular: positive: Regular rate & rhythm Abdomen: positive: No distention, Other. negative: Guarding, Rebound Extremities: positive: Non-tender, Full ROM, Nml appearance Neurologic/Psychiatric: positive: Oriented x3, CN's nml (2-12) Reduced right inguinal hernia. Impression/Plan Proceed with urgent repair of right inguinal hernia laparoscopic with diagnostic laparoscopy to evaluate the bowel and assure there is no complication. Risk and benefits discussed. Likely discharge tomorrow or next day with resumption of bowel function. Please note that voice recognition software was used to transcribe this note and inadvertent errors might persist in spite of review and editing. I am obliged to you for your attention. I am thankful to you for allowing me to participate with you in this care of this patient.
[2020-11-27] MEDS ORDERED: ONDANSETRON 4 MG/2 ML VIAL IVP PRN (12:54)
[2020-11-27] MEDS ORDERED: NALOXONE 0.4 MG/ML VIAL IVP PRN (12:54)
[2020-11-27] MEDS ORDERED: HYDROmorphone 0.5 MG/0.5 ML SYRINGE IVP PRN (12:54)
[2020-11-27] MEDS ORDERED: ATROPINE ABBOJECT 1 MG/10 ML SYRINGE IVP PRN (12:54)
[2020-11-27] MEDS ORDERED: MORPHINE 2 MG/ML CARPUJECT IVP PRN (12:54)
[2020-11-27] MEDS ORDERED: fentaNYL 100 MCG/2 ML VIAL IVP PRN (12:54)
[2020-11-27] MEDS ORDERED: LACTATED RINGERS 1,000 ML IV SCH (13:00)
[2020-11-27] MEDS ORDERED: ceFAZolin 1 GM VIAL ONE (13:22)
[2020-11-27] MEDS ORDERED: ONDANSETRON 4 MG/2 ML VIAL ONE (13:29)
[2020-11-27] MEDS ORDERED: DEXAMETHASONE 4 MG/ML VIAL ONE (13:29)
[2020-11-27] MEDS ORDERED: [UNRECOGNIZED DRUG - OTHER] INH ONE (13:34)
[2020-11-27] MEDS ORDERED: BUPIVACAINE 0.5% PF 30 ML VIAL INFIL ONE (13:55)
[2020-11-27] MEDS ORDERED: LIDOCAINE 2%-EPI 1:100000 20 ML MDV SUBQ ONE (13:56)
[2020-11-27] MEDS ORDERED: NEOSTIGMINE 1 MG/1 ML 10 ML MDV ONE (16:00)
[2020-11-27] MEDS ORDERED: GLYCOPYRROLATE 1 MG/5 ML VIAL ONE (16:00)
[2020-11-27] MEDS ORDERED: LACTATED RINGERS 1,000 ML IV ONE (16:18)
--- NOTE | 2020-11-27 16:36 | OPERATIVE REPORT ---
Operative Report - General Admit Date: 11/26/20 Procedure Date: 11/27/20 Planned Procedure: #1 diagnostic laparoscopy #2 laparoscopic transabdominal preperitoneal hernia repair, right #3 umbilical hernia repair, open Pre-Op Diagnosis: Incarcerated hernia; reduced by taxis; active smoker Procedure Performed: #1 diagnostic laparoscopy #2 laparoscopic transabdominal preperitoneal hernia repair, right, with mesh #3 umbilical hernia repair, open primary repair #4 adhesiolysis, laparoscopic extensive #5 complex right transabdominal preperitoneal hernia repair of a large indirect hernia with historic incarceration #6 complex right transabdominal preperitoneal hernia repair of femoral hernia #7 abdominal washout and drain placement Post Op Diagnosis: Same; bowel viable although inflamed; no spillage; large Rt indirect & fem - Procedure Note Primary Surgeon: Marcellus Secondary Surgeon: Margarita Anesthesia Provider: Adrián Anesthesia Technique: General ET tube, Local Pathology: Umbilical Hernia Contents Estimated Blood Loss (mL): 25 Drain/Tube Type: Rodrick drain Indications: See EMR Findings: #1 area of incarceration evaluated with entirety of bowel run; injected and inflamed however viable with notable pulses and peristalsis #2 very large right indirect hernia with massive internal opening large hernia sac and lipoma of the cord; lipoma tacked to ventral abdominal wall #3 femoral hernia also incorporated with extra-large Bard preformed mesh #4 umbilical hernia performed for primary open repair #5 no purulent peritonitis or signs of infection #6 successful transabdominal preperitoneal repair Complications: None - Other Other Information/Narrative: Indications: This 70-year-old male developed a acutely incarcerated and concern for strangulated right inguinal hernia. Urgent repair was indicated, and because of the patient's age/sex/nature of the hernia/patient preference laparoscopic repair was elected. However in order to offer thus the maximum opportunity to successfully address this laparoscopically without concerns for spillage, the patient was performed for taxis/hernia reduction within the emergency room successfully with no complication. Patient had no peritonitis or any other complicating features. Plan would be to proceed with diagnostic laparoscopy. Adhesiolysis. Evaluation of the entirety of the small bowel to assure no indication for resection and hopeful completion of MANJINDER AKA transabdominal preperitoneal laparoscopic right hernia repair Procedure: #1 diagnostic laparoscopy #2 laparoscopic transabdominal preperitoneal hernia repair, right, with mesh #3 umbilical hernia repair, open primary repair #4 adhesiolysis, laparoscopic extensive #5 complex right transabdominal preperitoneal hernia repair of a large indirect hernia with historic incarceration #6 complex right transabdominal preperitoneal hernia repair of femoral hernia #7 abdominal washout and drain placement Description of procedure: Patient was taken to the operating room placed supine on the operating table. Informed consent was already obtained. Patient was induced for general endotracheal anesthesia. Patient at this time was placed for Reed catheter. Patient was offloaded and padded. The patient was placed supine with arms tucked at the sides. After obtaining adequate anesthesia, the patient's abdomen was prepped and draped in standard sterile fashion. The patient was placed in the Trendelenburg position. Timeout was called and agreed to by all in the room. A plan access point was incised periumbilical. The patient was noted for umbilical hernia for which repair was indicated at the conclusion of this case. An incision was made sharply. Skin and subcutaneous tissues were divided using Bovie electrocautery. Fascia was encountered it was sharply divided. Muscle was bluntly divided. Posterior fascia was elevated and sharply divided. Abdominal cavity was entered without incident. Intraoperatively and throughout the case these were the following notable findings: #1 area of incarceration evaluated with entirety of bowel run; injected and inflamed however viable with notable pulsatile vasculature appreciated and peristalsis #2 very large right indirect hernia with massive internal opening large hernia sac and lipoma of the cord; lipoma tacked to ventral abdominal wall #3 femoral hernia also incorporated with extra-large Bard preformed mesh #4 umbilical hernia performed for primary open repair #5 no purulent peritonitis or signs of infection #6 successful transabdominal preperitoneal repair Two additional 10-mm trocars were placed lateral to the rectus sheath under direct laparoscopic vision. These were both placed to the left. Both inguinal regions were inspected and the median umbilical ligament, medial umbilical ligament, and lateral umbilical fold were identified. We proceeded with transabdominal preperitoneal laparoscopic repair of right inguinal hernia which was large indirect with a pantaloon hernia sac. The median umbilical ligament was divided sharply with electrocautery to achieve optimal exposure. The peritoneum was incised with endoscopic scissors along a line 2-4 cm above the superior edge of the hernia defect, extending from the median umbilical ligament to the anterior superior iliac spine. The peritoneal flap was mobilized inferiorly using blunt and sharp dissection. The inferior epigastric vessels were exposed, and the pubic symphysis was identified. Mateus's ligament was dissected to its junction with the femoral vein. The dissection was continued inferiorly to the iliopubic tract, with care taken to avoid injury to the femoral branch of the genitofemoral nerve and the lateral femoral cutaneous nerve. The cord structures were carefully skeletonized. Indirect hernia: The indirect hernia sac was noted to be exceedingly large and was carefully mobilized from the cord structures and reduced into the peritoneal cavity, leaving the distal sac in situ while the proximal sac was dissected away from the cord structures. There was a large cord lipoma as well that was reduced. The structures were incorporated with the ultimate closure of the peritoneum. A extra-large piece of mesh (Bard 3D max extra-large) was rolled longitudinally into a compact cylinder and passed through the Jeter trocar. The cylinder was placed along the inferior aspect of the working space and unrolled into place to completely cover the direct, indirect, and femoral spaces. The mesh was affixed with permanent laparoscopic tacking device into place, first along the superior border of the prosthesis from the space contralateral pubic tubercle to the ipsilateral anterior superior iliac spine. The inferior border of the mesh was secured with permanent laparoscopic tacking device to Mateus's ligament medially from the opposite pubic tubercle to the level of the ipsilateral femoral vein. Please note that this allowed for complete coverage of all hernia defects including the large indirect, the direct, as well as the femoral spaces. The peritoneal flap was closed with a V-Loc suture. Please note that the redundant sac and cord lipoma was reduced and incorporated into this peritoneal closure. There was no areas of rent or other complication into which bowel could herniate. After ensuring adequate hemostasis using electrocautery, abdomen was irrigated and aspirated clear. The trocars were removed, and the pneumoperitoneum evacuated. The trocar incisions were closed using skin aparna and dry dressing applied. Please note that a Rodrick drain was left in the abdomen although there was no concern for spillage or ischemia. This was placed abutting the extensive repair. The umbilical hernia was closed with several interrupted 0 Vicryls in a [id number] pattern. Umbilical plasty was performed. The umbilical incision was closed with skin aparna. The patient tolerated the procedure well and was taken to the postanesthesia care unit in stable condition. Was present for the entirety of this operative intervention all counts for sponges needles and instruments were correct at the conclusion of this case. Please note that voice recognition software was used to transcribe this note and inadvertent errors might persist in spite of review and editing. I am obliged to you for your attention. I am thankful to you for allowing me to participate with you in this care of this patient.
--- NOTE | 2020-11-27 16:43 | PROVIDER PROGRESS NOTE ---
Progress Note - BRIEF OP NOTE Admit Date: 11/26/20 Procedure Date: 11/27/20 Planned Procedure: #1 diagnostic laparoscopy #2 laparoscopic transabdominal preperitoneal hernia repair, right #3 umbilical hernia repair, open Pre-Op Diagnosis: Incarcerated hernia; reduced by taxis; active smoker Procedure Performed: #1 diagnostic laparoscopy #2 laparoscopic transabdominal preperitoneal hernia repair, right, with mesh #3 umbilical hernia repair, open primary repair #4 adhesiolysis, laparoscopic extensive #5 complex right transabdominal preperitoneal hernia repair of a large indirect hernia with historic incarceration #6 complex right transabdominal preperitoneal hernia repair of femoral hernia #7 abdominal washout and drain placement Post Op Diagnosis: Same; bowel viable although inflamed; no spillage; large Rt indirect & fem - Procedure Note Primary Surgeon: Marcellus Secondary Surgeon: Margarita Anesthesia Provider: Adrián Anesthesia Technique: General ET tube, Local Pathology: Umbilical Hernia Contents Estimated Blood Loss (mL): 25 Drain/Tube Type: Rodrick drain Indications: See EMR Findings: #1 area of incarceration evaluated with entirety of bowel run; injected and inflamed however viable with notable pulses and peristalsis #2 very large right indirect hernia with massive internal opening large hernia sac and lipoma of the cord; lipoma tacked to ventral abdominal wall #3 femoral hernia also incorporated with extra-large Bard preformed mesh #4 umbilical hernia performed for primary open repair #5 no purulent peritonitis or signs of infection #6 successful transabdominal preperitoneal repair Complications: None
[2020-11-27] MEDS: KETOROLAC 15 MG/ML VIAL IVP SCH ×2 (18:10→23:47)
--- NOTE | 2020-11-27 18:57 | PROVIDER PROGRESS NOTE ---
Subjective - Prog Note Date Prog Note Date: 11/27/20 Prog Note Time: 18:55 - Subjective Subjective: He went to the operating room today and underwent a diagnostic lap with laparoscopic transabdominal preperitoneal hernia repair, right, with mesh. He had a umbilical hernia repair, open. Adhesiolysis. He is returned to the floor. Still sleepy, slightly uncomfortable from his abdominal incision but denies any other further discomfort such as chest pain, shortness of breath. Current Medications - Current Medications Current Medications: Active Medications Amlodipine Besylate (Amlodipine 5 Mg Tablet) 5 mg PO DAILY [facility] Last Admin: 11/27/20 08:53 Dose: 5 mg Documented by: Docusate Sodium (Docusate Sodium 100 Mg Capsule) 100 mg PO BID [facility] Heparin Sodium (Porcine) (Heparin 5,000 Unit/Ml Vial) 5,000 unit SUBQ BID [facility] Hydromorphone HCl (Hydromorphone 0.5 Mg/0.5 Ml Syringe) 0.5 mg IVP Q2H PRN PRN Reason: Pain 8 to 10 Potassium Chloride/Dextrose/Sod Cl (D5ns W/20 Meq Kcl) 1,000 mls @ 125 mls/hr IV .Q8H [facility] Last Admin: 11/27/20 16:54 Dose: 125 mls/hr Documented by: Acetaminophen (Ofirmev) 100 mls @ 400 mls/hr IV Q6HR PRN PRN Reason: PAIN Ketorolac Tromethamine (Ketorolac 15 Mg/Ml Vial) 15 mg IVP Q6HR [facility] Stop: 12/02/20 17:59 Last Admin: 11/27/20 18:10 Dose: 15 mg Documented by: Methocarbamol (Methocarbamol 500 Mg Tablet) 500 mg PO Q6HR [facility] Last Admin: 11/27/20 18:13 Dose: 500 mg Documented by: Metoclopramide HCl (Metoclopramide 10 Mg/2 Ml Vial) 10 mg IVP Q6HR [facility] Last Admin: 11/27/20 18:14 Dose: 10 mg Documented by: Ondansetron HCl (Ondansetron 4 Mg/2 Ml Vial) 4 mg IVP Q6HR PRN PRN Reason: Nausea / Vomiting Oxycodone HCl (Oxycodone 5 Mg Tablet) 5 mg PO Q4HR PRN PRN Reason: PAIN Pantoprazole Sodium (Pantoprazole 40 Mg Vial) 40 mg IVP QDAC [facility] Last Admin: 11/27/20 06:26 Dose: 40 mg Documented by: Polyethylene Glycol (Polyethylene Glycol 3350 17 Gm Packet) 17 gm PO BID [facility] Sodium Chloride (Sodium Chloride Flush 0.9% 10 Ml Syringe) 10 ml IVP 0100,0900,1700 [facility] Last Admin: 11/27/20 08:54 Dose: 10 ml Documented by: Sodium Chloride (Sodium Chloride Flush 0.9% 10 Ml Syringe) 10 ml IVP PRN PRN PRN Reason: NEEDED PER PROVIDER ORDERS No Known Home Medications 11/26/20 Objective - Vital Signs/Intake & Output Reviewed Vital Signs: Yes Vital Signs: Vital Signs x48h Temp Pulse Pulse Resp BP BP Pulse Ox 11/27/20 17:20 36.5 C 99 18 149/77 H 96 11/27/20 16:50 36.5 C 77 18 164/83 H 93 11/27/20 16:36 37 C 80 20 167/74 H 100 11/27/20 16:30 37 C 87 18 153/87 H 96 11/27/20 16:25 37 C 85 18 173/83 H 97 11/27/20 16:20 37.5 C 79 15 161/79 H 100 11/27/20 16:15 37.5 C 100 16 150/93 H 100 Intake & Output: Intake & Output 11/24/20 11/25/20 11/26/20 11/27/20 23:59 23:59 23:59 23:59 Intake Total 1000 2700.000 Output Total 590 Balance 1000 2110.000 - Objective General Appearance: positive: No acute distress, Lethargic Eyes Bilateral: positive: PERRL, EOMI ENT: positive: No signs of dehydration Neck: positive: No JVD Respiratory: positive: No respiratory distress. negative: Wheezes, Rales, Rhonchi Cardiovascular: positive: Regular rate & rhythm. negative: Systolic murmur, Gallop/S4, Friction rub Abdomen: positive: Tenderness. negative: Guarding, Rebound Skin: positive: Warm, Dry Extremities: positive: Non-tender, No pedal edema Neurologic/Psychiatric: positive: Oriented x3, CN's nml (2-12), Motor nml - Lab Results Fish Bones: 11/27/20 04:55 11/27/20 04:55 Other Labs: Lab Results x24hrs 11/27/20 11/27/20 Range/Units 04:55 04:55 WBC 5.6 (4.8-10.8) x10^3/uL RBC 4.20 L (4.70-6.10) 10^6/uL Hgb 12.3 L (14.0-18.0) g/dL Hct 36.9 L (42.0-52.0) % MCV 87.9 (80.0-94.0) fL MCH 29.3 (27.0-31.0) pg MCHC 33.3 (32.0-36.0) g/dL RDW 12.7 (12.0-15.0) % Plt Count 189 (130-450) 10^3/uL MPV 10.0 (7.4-11.4) fL Neut # (Auto) 3.1 (1.5-6.6) 10^3/uL Lymph # (Auto) 1.9 (1.5-3.5) 10^3/uL [place] # (Auto) 0.4 (0.0-1.0) 10^3/uL Eos # (Auto) 0.1 (0.0-0.7) 10^3/uL Baso # (Auto) 0.0 (0.0-0.1) 10^3/uL Absolute Nucleated RBC 0.00 x10^3/uL Nucleated RBC % 0.0 /100WBC Sodium 139 (135-145) mmol/L Potassium 3.7 (3.5-5.0) mmol/L Chloride 108 (101-111) mmol/L Carbon Dioxide 25 (21-32) mmol/L Anion Gap 6.0 (6-13) BUN 13 (6-20) mg/dL Creatinine 1.2 (0.6-1.2) mg/dL Estimated GFR (MDRD) 60 L (>89) Glucose 113 H (70-100) mg/dL Calcium 8.7 (8.5-10.3) mg/dL Phosphorus 3.1 (2.5-4.6) mg/dL Magnesium 1.7 (1.7-2.8) mg/dL Total Bilirubin 0.7 (0.2-1.0) mg/dL AST 19 (10-42) IU/L ALT 14 (10-60) IU/L Alkaline Phosphatase 54 (42-121) IU/L Total Protein 6.3 L (6.7-8.2) g/dL Albumin 3.4 (3.2-5.5) g/dL Globulin 2.9 (2.1-4.2) g/dL Albumin/Globulin Ratio 1.2 (1.0-2.2) Assessment/Plan - Problem List (1) Hypertension Impression: He was started on amlodipine. Blood pressure still high today in the 160s to 170s. This is a relatively acceptable blood pressure in an acute setting. We will let him drift slowly back down to hopefully the 140s with his amlodipine. I do not want to give him double medication just for the inpatient stay. He will need close outpatient follow-up. Qualifiers: Hypertension type: essential hypertension Qualified Code(s): I10 - Essential (primary) hypertension (2) Hernia, inguinal Impression: As well as femoral hernia. With previous histories of repeated incarceration. Status post surgical repair as above. Postoperative day #1. Surgery is main service and we are following. Qualifiers: Obstruction and gangrene presence: with obstruction but without gangrene Laterality: unilateral Recurrence: not specified as recurrent Qualified Code(s): K40.30 - Unilateral inguinal hernia, with obstruction, without gonzalez grene, not specified as recurrent
--- NOTE | 2020-11-27 19:25 | ANESTHESIA POST OP EVALUATION ---
Anesthesia Post Eval - Post Anesthesia Eval Vitals: Last Vital Signs Temp 36.5 C 11/27/20 17:20 Pulse 99 11/27/20 17:20 Resp 18 11/27/20 17:20 BP 149/77 H 11/27/20 17:20 Pulse Ox 96 11/27/20 17:20 CV Function Including HR & BP: Stable Pain Control: Satisfactory Nausea & Vomiting: Negative Mental Status: Baseline Respiratory Status: Airway Patent Hydration Status: Satisfactory Anesthesia Complications: None
[2020-11-27] MEDS: polyethylene glycoL 3350 17 GM PACKET PO SCH (21:31)
[2020-11-27] MEDS: HEPARIN 5,000 UNIT/ML VIAL SUBQ SCH (21:31)
[2020-11-27] MEDS: DOCUSATE SODIUM 100 MG CAPSULE PO SCH (21:31)
[2020-11-27] MEDS: oxyCODONE 5 MG TABLET PO PRN (21:50)
[2020-11-28] MEDS: D5NS W/20 MEQ KCL 1,000 ML IV SCH ×3 (00:49→17:03)
[2020-11-28 05:12] LABS: BASOPHILS % (AUTO) 0.3 %; EOSINOPHILS % (AUTO) 0.1 %; HCT - HEMATOCRIT 33.7 % (42.0-52.0); HGB - HEMOGLOBIN 10.9 g/dL (14.0-18.0); LYMPHOCYTES # (AUTO) 1.6 10^3/uL (1.5-3.5); LYMPHOCYTES % (AUTO) 23.8 %; MEAN CORPUSCULAR HEMOGLOBIN 28.8 pg (27.0-31.0); MEAN CORPUSCULAR HGB CONC 32.3 g/dL (32.0-36.0); MEAN CORPUSCULAR VOLUME 88.9 fL (80.0-94.0); MEAN PLATELET VOLUME 10.3 fL (7.4-11.4); MONOCYTES # (AUTO) 0.6 10^3/uL (0.0-1.0); MONOCYTES % (AUTO) 8.2 %; NEUTROPHILS # (AUTO) 4.5 10^3/uL (1.5-6.6); NEUTROPHILS % (AUTO) 67.5 %; PLT - PLATELET COUNT 169 10^3/uL (130-450); RED BLOOD COUNT 3.79 10^6/uL (4.70-6.10); RED CELL DISTRIBUTION WIDTH 12.8 % (12.0-15.0); WHITE BLOOD COUNT 6.7 x10^3/uL (4.8-10.8)
[2020-11-28 05:23] LABS: ALBUMIN/GLOBULIN RATIO 1.2 (1.0-2.2); BILIRUBIN,TOTAL 0.7 mg/dL (0.2-1.0); CALCIUM 8.3 mg/dL (8.5-10.3); CREATININE 1.5 mg/dL (0.6-1.2); MAGNESIUM 1.5 mg/dL (1.7-2.8); PHOSPHORUS 3.2 mg/dL (2.5-4.6); POTASSIUM 4.1 mmol/L (3.5-5.0); TOTAL PROTEIN 5.6 g/dL (6.7-8.2)
[2020-11-28] MEDS: methocarbamoL 500 MG TABLET PO SCH ×3 (05:41→17:58)
[2020-11-28] MEDS: METOCLOPRAMIDE 10 MG/2 ML VIAL IVP SCH ×3 (05:41→18:03)
[2020-11-28] MEDS: PANTOPRAZOLE 40 MG VIAL IVP SCH (05:41)
[2020-11-28] MEDS: KETOROLAC 15 MG/ML VIAL IVP SCH ×3 (05:41→17:58)
--- NOTE | 2020-11-28 08:37 | PHARMACY PROGRESS NOTE ---
- Best Possible Medication History Admit Date and Time: 11/26/20 1734 Processed by: Nursing Medication History completed: Yes Patient Interview: Pt interview ONLY source As the person ultimately responsible for medication therapy, providers are able to order a medication from an existing home medication list in [facility] via the "Reconcile Routine" prior to Confirmation of that medication by is support analyst. Such practice is discouraged except when the physician, in their clinical judgment, deems that a medical need exists for a medication without regard to previous use.
[2020-11-28] MEDS: polyethylene glycoL 3350 17 GM PACKET PO SCH ×2 (08:40→20:37)
[2020-11-28] MEDS: DOCUSATE SODIUM 100 MG CAPSULE PO SCH ×2 (08:41→20:36)
[2020-11-28] MEDS: SODIUM CHLORIDE FLUSH 0.9% 10 ML SYRINGE IVP SCH ×2 (08:41→17:05)
[2020-11-28] MEDS: amLODIPine 5 MG TABLET PO SCH (08:41)
[2020-11-28] MEDS: HEPARIN 5,000 UNIT/ML VIAL SUBQ SCH ×2 (08:43→20:36)
[2020-11-28] MEDS: oxyCODONE 5 MG TABLET PO PRN ×2 (16:16→20:36)
--- NOTE | 2020-11-28 16:30 | PROVIDER PROGRESS NOTE ---
Progress Note November 28, 2020 16: 25 "I feel like you guys hit me with a truck". He is exhausted. Nauseated. But hemodynamically stable. There is been no fever, blood pressure stable. He is 97% on room air. He is getting up out of bed, walking to the bathroom, using the urinal, sitting in the chair. He had a bowel movement yesterday after surgery, had another bowel movement today. Ate 50% of breakfast and lunch today Medication list reviewed. He is on IV Tylenol, IV Dilaudid, IV Toradol, IV Reglan. Pharmacy is asking if he can change him to p.o. I have deferred to general surgery for their discretion. His blood pressure medicine of Norvasc is 5 mg daily. Review of his vitals shows blood pressure to have come down last night quite nicely. This morning he was stable at 129/68. This afternoon is 135/76. Temperature is 37.2. Pulse is 82. 97% on room air. On physical examination he is a fatigued appearing middle-aged white male. Lillian rt, oriented. Affect much more muted than yesterday. Neck is supple without goiter or bruits or JVD Lungs are clear to auscultation and percussion without any increased respiratory effort Regular rate and rhythm without a murmur or gallop Abdomen is distended, hypoactive bowel sounds, mild generalized achiness when I palpate but no rebound or guarding or masses Extremities are without edema. Assessment/plan 1. Hypertension was the reason we were consulted. He was started on amlodipine and blood pressure has responded nicely. We will not be changing that and he should be discharged on this medication. He has not seen a physician in 20 years. We recommend that he establish himself with a primary care provider for blood pressure follow-up. 2. Femoral and inguinal hernia repair. Was successfully decompressed in the ER, and had subsequent surgery. He is postop day #1. He is progressing well in spite of his overall malaise..
[2020-11-29] MEDS: KETOROLAC 15 MG/ML VIAL IVP SCH ×3 (00:53→11:10)
[2020-11-29] MEDS: SODIUM CHLORIDE FLUSH 0.9% 10 ML SYRINGE IVP SCH ×2 (00:54→09:28)
[2020-11-29] MEDS: D5NS W/20 MEQ KCL 1,000 ML IV SCH (00:54)
[2020-11-29] MEDS: methocarbamoL 500 MG TABLET PO SCH ×3 (00:54→11:10)
[2020-11-29] MEDS: METOCLOPRAMIDE 10 MG/2 ML VIAL IVP SCH ×2 (00:54→06:27)
[2020-11-29 05:19] LABS: BASOPHILS % (AUTO) 0.7 %; EOSINOPHILS # (AUTO) 0.2 10^3/uL (0.0-0.7); EOSINOPHILS % (AUTO) 3.9 %; HCT - HEMATOCRIT 33.4 % (42.0-52.0); HGB - HEMOGLOBIN 11.1 g/dL (14.0-18.0); LYMPHOCYTES # (AUTO) 1.7 10^3/uL (1.5-3.5); LYMPHOCYTES % (AUTO) 29.3 %; MEAN CORPUSCULAR HEMOGLOBIN 29.6 pg (27.0-31.0); MEAN CORPUSCULAR HGB CONC 33.2 g/dL (32.0-36.0); MEAN CORPUSCULAR VOLUME 89.1 fL (80.0-94.0); MONOCYTES # (AUTO) 0.4 10^3/uL (0.0-1.0); MONOCYTES % (AUTO) 7.2 %; NEUTROPHILS # (AUTO) 3.5 10^3/uL (1.5-6.6); NEUTROPHILS % (AUTO) 58.7 %; PLT - PLATELET COUNT 169 10^3/uL (130-450); RED BLOOD COUNT 3.75 10^6/uL (4.70-6.10); RED CELL DISTRIBUTION WIDTH 12.7 % (12.0-15.0); WHITE BLOOD COUNT 5.9 x10^3/uL (4.8-10.8)
[2020-11-29 05:38] LABS: ALBUMIN 3.1 g/dL (3.2-5.5); ALBUMIN/GLOBULIN RATIO 1.2 (1.0-2.2); BILIRUBIN,TOTAL 0.7 mg/dL (0.2-1.0); CALCIUM 8.5 mg/dL (8.5-10.3); CREATININE 1.2 mg/dL (0.6-1.2); MAGNESIUM 1.5 mg/dL (1.7-2.8); PHOSPHORUS 2.7 mg/dL (2.5-4.6); POTASSIUM 4.1 mmol/L (3.5-5.0); TOTAL PROTEIN 5.7 g/dL (6.7-8.2)
[2020-11-29] MEDS: oxyCODONE 5 MG TABLET PO PRN ×2 (06:26→15:32)
[2020-11-29] MEDS: PANTOPRAZOLE 40 MG VIAL IVP SCH (06:27)
[2020-11-29] MEDS ORDERED: ACETAMINOPHEN 500 MG TABLET PO PRN (08:47)
[2020-11-29] MEDS ORDERED: POTASSIUM CHLORIDE INJ 20 MEQ in DEXTROSE 5%-0.9% NACL 1,000 ML IV SCH (09:00)
[2020-11-29] MEDS: HEPARIN 5,000 UNIT/ML VIAL SUBQ SCH (09:26)
[2020-11-29] MEDS: amLODIPine 5 MG TABLET PO SCH (09:28)
[2020-11-29] MEDS: DOCUSATE SODIUM 100 MG CAPSULE PO SCH (09:28)
[2020-11-29] MEDS: polyethylene glycoL 3350 17 GM PACKET PO SCH (09:28)
[2020-11-29 10:06] VITALS: BP 157/91
--- NOTE | 2020-11-29 10:54 | PROVIDER PROGRESS NOTE ---
Progress Note November 29, 2020 10:46 AM He feels better than yesterday. The only time he remembers that something happened is when he coughs or sneezes and then it really hurts his abdominal wall. But otherwise he is tolerating his clear liquid diet. Eating about 25 to 50% of it. No nausea. Had a bowel movement yesterday. Denies chest pain, palpitations, shortness of breath. Medications are reviewed and he continues to be on as needed IV Dilaudid, IV Toradol, and D5 normal saline with 20 of K. Rest of his p.o. medicines are Tylenol, Norvasc, Colace, magnesium oxide that I just ordered, Robaxin, Reglan, Zofran, Roxicodone. Protonix. Temperature is 36.9. Heart rate is 80. Blood pressure 157/91. Respirations 18. 95% on room air. An alert oriented white male who looks his stated age. Voice is a little hoarse. Neck is supple with shotty adenopathy. Lungs are clear with out crackles rhonchi or wheezing. Regular rate and rhythm. No murmurs rubs or gallops. Abdomen is still slightly distended, hypoactive bowel sounds, tender over the incision site. Skin looks great and that there is no redness, heat or drainage. He is alert and oriented to person place and time. His dry weight is definitely apparent again today. Yesterday he was under the weather and muted affect. He is a little bit hard of hearing. CMP today is normal other than a slightly low magnesium of 1.5. CBC has a white cell count that is normal at 5.9, hemoglobin has dropped from admitting date of 13.9-11.1 today. Assessment/plan We were consulted for hypertension. It is now well controlled with just a single agent of Norvasc. I have advised him that I will call the prescription into [facility] at his request. He needs to take that every day. He needs to establish himself with a primary care provider. If he is having difficulty finding a primary care provider, he can always use the walk-in clinic on [address] or behind [facility] for follow-up of his blood pressure. But I strongly recommend that he establish himself with a primary care provider. He has a low magnesium today. I have given him 1 dose of oral magnesium and recommending that he go home on magnesium supplement for a few weeks. I have also called that into [facility]. He is postoperative day #2 for a femoral and inguinal hernia repair. It was successfully reduced in the ER. However he has a history of recurrent incarcerated hernia and he was fixed on a semiurgent basis. I will take the liberty of ordering him a regular diet. Discharge managed by general surgery.
[2020-11-29] MEDS ORDERED: MAGNESIUM OXIDE 400 MG TABLET PO SCH (11:00)
[2020-11-29] MEDS ORDERED: METOCLOPRAMIDE 10 MG TABLET PO SCH (12:00)
--- NOTE | 2020-11-29 13:05 | PROVIDER PROGRESS NOTE ---
Progress Note Subjective Postoperative day #1 status post below listed procedure. Pain management. Urinary retention. Ileus. Continued monitoring for incarcerated bowel; intraoperatively viable. Pre-Op Diagnosis: Incarcerated hernia; reduced by taxis; active smoker Procedure Performed: #1 diagnostic laparoscopy #2 laparoscopic transabdominal preperitoneal hernia repair, right, with mesh #3 umbilical hernia repair, open primary repair #4 adhesiolysis, laparoscopic extensive #5 complex right transabdominal preperitoneal hernia repair of a large indirect hernia with historic incarceration #6 complex right transabdominal preperitoneal hernia repair of femoral hernia #7 abdominal washout and drain placement Post Op Diagnosis: Same; bowel viable although inflamed; no spillage; large Rt indirect & fem Objective Afebrile hemodynamically acceptable General Appearance: positive: No acute distress Eyes Bilateral: positive: Normal inspection ENT: positive: ENT inspection nml Neck: positive: Nml inspection Respiratory: positive: Chest non-tender, No respiratory distress, Breath sounds nml. negative: Wheezes, Rales, Rhonchi Cardiovascular: positive: Regular rate & rhythm Abdomen: positive: No distention, Other. negative: Guarding, Rebound Extremities: positive: Non-tender, Full ROM, Nml appearance Neurologic/Psychiatric: positive: Oriented x3, CN's nml (2-12) Abdominal Exam: Inspection - Erythema [none]; Scars [trocars well healed] Auscultation - [Normoactive bowel sounds] Palpation - Hernias [none]; Fluctuance [none]; Induration [none]; Scar [N/A] No recurrent hernia, right testicle without pain no complication. Impression/Plan Postoperative day #1. Ileus. Urinary retention. Continued moderate or incarcerated bowel that did not appear necessary for resection. Drain in place. Continue to monitor. DC with drain. Follow-up next week for drain removal and staple removal. Please note that voice recognition software was used to transcribe this note and inadvertent errors might persist in spite of review and editing. I am obliged to you for your attention. I am thankful to you for allowing me to participate with you in this care of this patient.
--- NOTE | 2020-11-29 13:06 | Discharge Plan ---
Discharge Plan Problem Reviewed?: Yes Disposition: Home, Self Care Condition: Stable Prescriptions: oxyCODONE [Roxicodone] 5 mg PO Q4HR PRN #30 tablet PRN Reason: Pain methocarbamoL [Robaxin] 500 mg PO Q6HR PRN #50 tablet PRN Reason: Spasms Magnesium 250 mg PO DAILY #60 tablet amLODIPine [Norvasc] 5 mg PO DAILY #60 tablet Pantoprazole [Protonix] 40 mg PO QDAC #30 tablet Diet: Soft Activity Restrictions: No heavy lift/push/pull Shower Restrictions: No Driving Restrictions: Yes (No narcotics while driving) Weight Bearing: Full Weight Instruction Topics: Inguinal Hernia Repair After Ch, Hernia Surg Repair, Hernia Surg Inguinal Groin Ch, Hernia Laparoscopic Repair MANJINDER Additional Instructions or Follow Up instructions: DISCHARGE INSTRUCTIONS TEMPLATE: No heavy lifting, pushing, or pulling. Stairs are allowed, no strenuous/exertional activities. 5-10lbs weight carrying limit (i.e. gallon of milk) If provided, abdominal binder while out of bed and while ambulating. Call or proceed to clinic/ER for fevers, severe pain, nausea, vomiting, inability to pass flatus/stool, bleeding, wound redness/discharge, weakness, excessively loose stool/diarrhea, or for any other reasonably worrisome symptom or concern. Soft diet, no raw vegetables, avoid high fiber foods. Colace 100mg by mouth twice to three times daily while taking narcotic pain medication. If no bowel movement in 24-48hr, may take 17g Miralax in 8oz water twice daily until bowel movement. May shower, no submersive bathing. Follow up in clinic in 2-4 weeks for wound check and staple removal. No driving while taking narcotic pain medications. Follow up with primary care provider and/or medical subspecialist following discharge as well. Patient not allowed to drive self today or within 24 hours of surgery. Impression/Plan 1. Oxycodone every 4-6 hours as needed for pain 2. Take Colace twice daily and MiraLAX daily as per above while taking narcotics and if no bowel function 3. Avoid nonsteroidals and continue with acetaminophen 650 mg every 6 hours not to exceed 4 g daily 4. Patient to also follow-up in surgery clinic for staple removal. 5. Patient to call or return to the hospital through ER for fevers, nausea, vomiting, abdominal pain or any other worrisome symptoms or concerns. 6. Patient not to return to any work capacity until seen in clinic. No Smoking: If you smoke, Please STOP! Call for help. Follow-up with: Isaiah Germain MD [Provider Admit Priv/Credential] - 2 Weeks
--- NOTE | 2020-11-29 13:06 | DISCHARGE SUMMARY ---
"Discharge Summary Admit Date: 11/26/20 Discharge Date: 11/29/20 Discharging Provider: Marcellus Code Status: Attempt Resuscitation Condition at Discharge: Stable Discharge Disposition: 01 Home, Self Care - DIAGNOSES Admission Diagnoses: 1. Strangulated right inguinal hernia 2. Large right inguinal hernia, symptomatic/recurrent 3. Hypertension 4. Smoking 5. Abdominal pain 6. Bowel obstruction 7. Postoperative ileus 8. Urinary retention Discharge Diagnoses with Status of Each Condition: 1. Strangulated right inguinal hernia - repaired 2. Large right inguinal hernia, symptomatic/recurrent - repaired 3. Hypertension - treated 4. Smoking - counseled on cessation 5. Abdominal pain - treated/resolved 6. Bowel obstruction - treated/resolved 7. Postoperative ileus - treated/resolved 8. Urinary retention - treated/resolved - HPI History of Present Illness: 70-year-old male presenting for incarcerated right inguinal hernia. Acute onset right inguinal hernia incarceration; patient reports longstanding however has worsened and acutely incarcerated while swimming. This is a 70-year-old male with no significant past medical history who presents today complaining of right lower quadrant abdominal pain that began this morning. He states this is happened about 5-6 times this past year which time has resolved on its own. The pain was about 12 out of 10 and was so excruciat ing that he sought medical attention immediately. He had no associated nausea or vomiting. Denies fevers, chills, chest pain, dyspnea. He currently states that his pain is resolved and he feels back to his usual self. He denies any medical history but he has not seen a physician in over 10/15 years. He takes no medication. He denies a prior history of diabetes or hypertension. ER staff unable to reduce. No significant family history. Notable past surgical history to include none. Patient denies change in bowel function, denies bleeding per rectum, and also denies reflux associated symptoms. Patient has a history of alcohol use but denies any associated abuse. No history of heart attack or stroke. Patient takes no systemic anticoagulation. Endoscopic history includes never. - CONSULTS | PROCEDURES Consultations: Hospitalist Service Procedures: Pre-Op Diagnosis: Incarcerated hernia; reduced by taxis; active smoker Procedure Performed: #1 diagnostic laparoscopy #2 laparoscopic transabdominal preperitoneal hernia repair, right, with mesh #3 umbilical hernia repair, open primary repair #4 adhesiolysis, laparoscopic extensive #5 complex right transabdominal preperitoneal hernia repair of a large indirect hernia with historic incarceration #6 complex right transabdominal preperitoneal hernia repair of femoral hernia #7 abdominal washout and drain placement Post Op Diagnosis: Same; bowel viable although inflamed; no spillage; large Rt indirect & fem Findings: #1 area of incarceration evaluated with entirety of bowel run; injected and inflamed however viable with notable pulses and peristalsis #2 very large right indirect hernia with massive internal opening large hernia sac and lipoma of the cord; lipoma tacked to ventral abdominal wall #3 femoral hernia also incorporated with extra-large Bard preformed mesh #4 umbilical hernia performed for primary open repair #5 no purulent peritonitis or signs of infection #6 successful transabdominal preperitoneal repair - HOSPITAL COURSE Hospital Course: Hospital Course: Patient was admitted to the surgical service once the hernia was reduced to prevent any ongoing concerns for strangulation. Patient was monitored for his abdominal exam thereafter. He had significant improvement in his overall constellation of symptoms. We opted to proceed with the patient's operative intervention on the day following given we had temporize his condition with taxis/hernia reduction of the right. Patient underwent above listed procedure. Patient was followed for hypertension by the hospitalist service. Postoperatively the patient had nausea and associated urinary retention. He was maintained on antiemetics and slow resumption of oral intake. He was aggressively started on a bowel regimen. This is not surprising given the extent of his adhesions and also the difficulty with which this repair was achieved. He also had urinary retention which was addressed with Flomax started perioperatively. Reed catheter did not have to be reinserted. Postoperatively the patient was managed for postoperative analgesia and resumption of bowel function. Patient had successfully passed trial of void with discontinuation of Reed. Tolerated oral intake without any complication. Denied nausea denied vomiting. Was advanced for diet without any complication. Was counseled that given evidence of umbilical hernia which was repaired at the time of the patient's operative intervention that she should avoid any heavy lifting pushing or pulling. Moreover the patient was advised that given the extent of the dissection and the Large right inguinal hernia repairs for 3 large defects, he was also to limit exertional activity. Patient was maintained on a bowel regimen. Patient was tolerating oral analgesia, p.o. nutrition with soft diet, voiding spontaneously, with positive resumption of bowel function. Afebrile hemodynamically acceptable. Electrolytes repleted throughout and blood counts as a relates to risks of anemia in the perioperative setting and leukocytosis as an inflammatory marker were all stable without any concerns. Patient was maintained for the drain at the time of discharge which would be removed in clinic. Discharge instructions given. Analgesia with oxycodone provided at time of discharge. Patient plan for follow-up and will be notified of pathology once returned. - ALLERGIES Allergies/Adverse Reactions: Allergies Allergy/AdvReac Type Severity Reaction Status Date / Time No Known Drug Allergies Allergy Verified 11/26/20 08:41 - MEDICATIONS Home Medications: Ambulatory Orders Medication Instructions Recorded Confirmed Acetaminophen [Tylenol] 1,000 mg PO Q6H PRN tablet 11/29/20 Docusate Sodium 100Mg Capsule 100 mg PO BID 11/29/20 [Colace 100Mg Capsule] Magnesium 250 mg PO DAILY #60 tablet 11/29/20 Magnesium Oxide [Mag Ox] 400 mg PO DAILYWM #0 tablet 11/29/20 Pantoprazole [Protonix] 40 mg PO QDAC #30 tablet 11/29/20 amLODIPine [Norvasc] 5 mg PO DAILY #60 tablet 11/29/20 methocarbamoL [Robaxin] 500 mg PO Q6HR PRN #50 tablet 11/29/20 oxyCODONE [Roxicodone] 5 mg PO Q6H PRN #24 tablet 11/29/20 polyethylene glycoL 3350 [Miralax] 17 gm PO BID packet 11/29/20 - PHYSICAL EXAM AT DISCHARGE Physical Exam Other/Comments: Objective Afebrile hemodynamically acceptable General Appearance: positive: No acute distress Eyes Bilateral: positive: Normal inspection ENT: positive: ENT inspection nml Neck: positive: Nml inspection Respiratory: positive: Chest non-tender, No respiratory distress, Breath sounds nml. negative: Wheezes, Rales, Rhonchi Cardiovascular: positive: Regular rate & rhythm Abdomen: positive: No distention, Other. negative: Guarding, Rebound Extremities: positive: Non-tender, Full ROM, Nml appearance Neurologic/Psychiatric: positive: Oriented x3, CN's nml (2-12) Abdominal Exam: Inspection - Erythema none ; Scars trocars well healed Auscultation - normoactive bowel sounds Palpation - Hernias none ; Fluctuance none ; Induration none ; Scar N/A No recurrent hernia, right testicle without pain no complication. - LABS Result Diagrams: 11/29/20 04:52 11/29/20 04:52 - SEPSIS Current Stage of Sepsis: Ruled out - FOLLOW UP Follow Up: See discharge plan - TIME SPENT Time Spent in Discharge (Minutes): 60"
[2020-11-30] MEDS ORDERED: PANTOPRAZOLE 40 MG TABLET PO SCH (07:00)
== END 2020-11-29 15:44 | disposition home or self-care (01) | DRG 351 ==
LOC: ED 08:23 → MS2 17:31
PROVIDERS: ADMIT Surgery; ATTEND Surgery
PROC: 0YU54JZ Supplement Right Inguinal Region with Synthetic Substitute, Percutaneous Endoscopic Approach (ICD-10-PCS; principal; 2020-11-27 10:00)
DX: K40.30 Unilateral inguinal hernia, with obstruction, without gangrene, not specified as recurrent (principal); F17.200 Nicotine dependence, unspecified, uncomplicated; K56.7 Ileus, unspecified; R33.8 Other retention of urine; K41.90 Unilateral femoral hernia, without obstruction or gangrene, not specified as recurrent; K42.9 Umbilical hernia without obstruction or gangrene; K66.0 Peritoneal adhesions (postprocedural) (postinfection); D17.6 Benign lipomatous neoplasm of spermatic cord; I10 Essential (primary) hypertension; Z87.891 Personal history of nicotine dependence
CPT/HCPCS: 36415; 71045; 74177; 80053; 81003; 83605; 83690; 83735; 84100; 85025; 87631; 93005; 96361; 96374; 99284; 99285; A9270; C1781; J0131; J0330; J1170; J2765; J3480; J7120; Q9967; 0202U; 81001; 87086